=== PATIENT | female | born 1955 | race Caucasian/White ===

== ENCOUNTER 2021-02-14 21:26 | Emergency (ER) | payer MEDICARE ==
[2021-02-14] MEDS ORDERED: Ondansetron 4 MG/2 ML SDV IVPUSH ONE ×2 (21:28→22:33)
[2021-02-14] MEDS ORDERED: Sodium Chloride 0.9% 10 ML Syringe FLUSH PRN (21:28)
[2021-02-14] MEDS ORDERED: Sodium Chloride 0.9% 1,000 ML IV SCH (21:30)
--- NOTE | 2021-02-14 21:32 | EDM.PDOC ---
ED HPI GENERAL MEDICAL PROBLEM - General Chief Complaint: Syncope Stated Complaint: MEDICAL [facility] Time Seen by Provider: 02/14/21 21:27 Source of Information: Reports: Patient, EMS History Limitations: Reports: No Limitations - History of Present Illness INITIAL COMMENTS - FREE TEXT/NARRATIVE: Jesenia is a 65-year-old female presenting to the ED for evaluation of syncopal episode. Patient was at a local area establishment spearing seeing a wine tasting event and started to feel unwell. EMS was called because she felt ill and they reported that she had a 10-second syncopal episode while on their cart. They report that she was pale and diaphoretic. At no time did she lose pulse or respiratory drive, however, she was unresponsive during that time. There was no evidence for seizure activity. The patient continues to complain of feeling unwell, dizziness, intoxication, and nausea. She has not had any emesis at this point. She does take cetirizine and Flonase. She has a severe allergy to quinine. - Related Data Allergies Allergy/AdvReac Type Severity Reaction Status Date / Time quinine Allergy Chills Verified 02/14/21 22:03 Home Meds: Home Meds Cetirizine HCl [Zyrtec] 1 cap PO DAILY 02/14/21 [History] Fluticasone Propionate [Flonase] 1 spray NASBOTH DAILY 02/14/21 [History] Montelukast [Singulair] 1 tab PO DAILY 02/14/21 [History] Pantoprazole Sodium [Protonix] 1 tab PO DAILY 02/14/21 [History] ED ROS GENERAL - Review of Systems Review Of Systems: See Below Constitutional: Reports: Malaise, Weakness, Decreased Appetite HEENT: Reports: No Symptoms Respiratory: Reports: No Symptoms Cardiovascular: Reports: Syncope Endocrine: Reports: No Symptoms GI/Abdominal: Reports: Nausea : Reports: No Symptoms Musculoskeletal: Reports: No Symptoms Skin: Reports: No Symptoms Neurological: Reports: No Symptoms Psychiatric: Reports: No Symptoms Hematologic/Lymphatic: Reports: No Symptoms Immunologic: Reports: No Symptoms - Physical Exam Exam: See Below Exam Limited By: No Limitations General Appearance: Alert, Anxious, Other (Slow to answer questions) Eye Exam: Bilateral Eye: EOMI, PERRL Ears: Normal External Exam, Normal TMs Nose: Normal Inspection, Normal Mucosa Throat/Mouth: Normal Inspection, Normal Lips, Normal Oropharynx, Normal Voice, No Airway Compromise Head Exam: Atraumatic, Normocephalic Neck: Normal Inspection, Supple, Non-Tender, Full Range of Motion Respiratory/Chest: No Respiratory Distress, Lungs Clear, Normal Breath Sounds Cardiovascular: Normal Peripheral Pulses, Regular Rate, Rhythm, No Murmur GI/Abdominal: Normal Bowel Sounds, Soft, Non-Tender Neuro Exam (Abbreviated): Alert, Oriented, CN II-XII Intact, No Motor/Sensory Deficits, Slow to Respond Back Exam: Normal Inspection, Full Range of Motion Extremities: Normal Inspection, Normal Range of Motion, Normal Capillary Refill Psychiatric: Normal Affect Skin Exam: Warm, Dry, Intact, Normal Color #1 Interpretation EKG Date: 02/14/21 Time: 21:27 Rhythm: NSR Rate (Beats/Min): 68 [place]: Normal P-Wave: Present (Prolonged AK interval at 225 ms) QRS: Normal ST-T: Normal QT: Normal Comparison: NA - No Prior EKG Course - Vital Signs Last Recorded V/S: Last Vital Signs Temp 35.9 C L 02/14/21 21:51 Pulse 68 02/14/21 22:25 Resp 21 H 02/14/21 22:25 BP 111/60 02/14/21 22:25 Pulse Ox 100 02/14/21 22:25 - Orders/Labs/Meds Orders: Active Orders 24 hr Category Date Time Status EKG Documentation Completion [RC] ASDIRECTED Care 02/14/21 21:29 Active Sodium Chloride 0.9% [Normal Saline] 1,000 ml Med 02/14/21 21:30 Active IV ASDIRECTED Sodium Chloride 0.9% [Saline Flush] Med 02/14/21 21:28 Active 10 ml FLUSH ASDIRECTED PRN Saline Lock Insert [OM.PC] Routine Oth 02/14/21 21:28 Ordered EKG 12 Lead [EK] Routine Ther 02/14/21 21:29 Ordered Medication Orders Sodium Chloride (Normal Saline) 1,000 mls @ 999 mls/hr IV ASDIRECTED JT Last Admin: 02/14/21 21:46 Dose: 999 mls/hr Documented by: SWEETIE Sodium Chloride (Sodium Chloride 0.9% 10 Ml Syringe) 10 ml FLUSH ASDIRECTED PRN PRN Reason: Keep Vein Open Last Admin: 02/14/21 22:08 Dose: 10 ml Documented by: SWEETIE Labs: Laboratory Tests 02/14/21 02/14/21 02/14/21 Range/Units 21:28 21:41 21:41 WBC 8.4 (4.5-11.0) K/uL RBC 3.96 (3.30-5.50) M/uL Hgb 12.1 (12.0-15.0) g/dL Hct 36.6 (36.0-48.0) % MCV 92 (80-98) fL MCH 31 (27-31) pg MCHC 33 (32-36) % Plt Count 158 (150-400) K/uL Neut % (Auto) 53.7 (36-66) % Lymph % (Auto) 35.5 (24-44) % [place] % (Auto) 8.0 H (2-6) % Eos % (Auto) 1.7 L (2-4) % Baso % (Auto) 1.1 H (0-1) % Sodium 140 (140-148) mmol/L Potassium 3.1 L (3.6-5.2) mmol/L Chloride 105 (100-108) mmol/L Carbon Dioxide 21 (21-32) mmol/L Anion Gap 17.1 H (5.0-14.0) mmol/L BUN 16 (7-18) mg/dL Creatinine 0.9 (0.6-1.0) mg/dL Est Cr Clr Drug Dosing 57.56 mL/min Estimated GFR (MDRD) > 60 (>60) Glucose 127 H (74-106) mg/dL Calcium 8.6 (8.5-10.1) mg/dL Total Bilirubin 0.2 (0.2-1.0) mg/dL AST 39 H (15-37) U/L ALT 44 (12-78) U/L Alkaline Phosphatase 60 (46-116) U/L Troponin I (0.000-0.056) ng/mL C-Reactive Protein (0.0-0.3) mg/dL Total Protein 6.6 (6.4-8.2) g/dL Albumin 3.4 (3.4-5.0) g/dL Globulin 3.2 (2.3-3.5) g/dL Albumin/Globulin Ratio 1.1 L (1.2-2.2) Lipase 124 (73-393) U/L Ethyl Alcohol 85 mg/dL 02/14/21 02/14/21 Range/Units 21:41 22:22 WBC (4.5-11.0) K/uL RBC (3.30-5.50) M/uL Hgb (12.0-15.0) g/dL Hct (36.0-48.0) % MCV (80-98) fL MCH (27-31) pg MCHC (32-36) % Plt Count (150-400) K/uL Neut % (Auto) (36-66) % Lymph % (Auto) (24-44) % [place] % (Auto) (2-6) % Eos % (Auto) (2-4) % Baso % (Auto) (0-1) % Sodium (140-148) mmol/L Potassium (3.6-5.2) mmol/L Chloride (100-108) mmol/L Carbon Dioxide (21-32) mmol/L Anion Gap (5.0-14.0) mmol/L BUN (7-18) mg/dL Creatinine (0.6-1.0) mg/dL Est Cr Clr Drug Dosing mL/min Estimated GFR (MDRD) (>60) Glucose (74-106) mg/dL Calcium (8.5-10.1) mg/dL Total Bilirubin (0.2-1.0) mg/dL AST (15-37) U/L ALT (12-78) U/L Alkaline Phosphatase (46-116) U/L Troponin I < 0.017 (0.000-0.056) ng/mL C-Reactive Protein < 0.05 (0.0-0.3) mg/dL Total Protein (6.4-8.2) g/dL Albumin (3.4-5.0) g/dL Globulin (2.3-3.5) g/dL Albumin/Globulin Ratio (1.2-2.2) Lipase (73-393) U/L Ethyl Alcohol mg/dL Meds: Medications Generic Name Dose Route Start Last Admin Trade Name Freq PRN Reason Stop Dose Admin Sodium Chloride 1,000 mls @ 999 mls/hr 02/14/21 21:30 02/14/21 21:46 Normal Saline IV 999 mls/hr ASDIRECTED JT Administration Sodium Chloride 10 ml 02/14/21 21:28 02/14/21 22:08 Sodium Chloride 0.9% 10 Ml Syringe FLUSH 10 ml ASDIRECTED PRN Administration Keep Vein Open Discontinued Medications Generic Name Dose Route Start Last Admin Trade Name Yonatanq PRN Reason Stop Dose Admin Ondansetron HCl 4 mg 02/14/21 21:28 02/14/21 21:46 Ondansetron 4 Mg/2 Ml Sdv IVPUSH 02/14/21 21:29 4 mg ONETIME ONE Administration Ondansetron HCl 4 mg 02/14/21 22:33 02/14/21 22:55 Ondansetron 4 Mg/2 Ml Sdv IVPUSH 02/14/21 22:34 4 mg ONETIME ONE Administration - Re-Assessments/Exams Free Text/Narrative Re-Assessment/Exam: 02/14/21 22:23 the patient presents with a letter from her provider stating that she has an immune mediated response to quinine causing thrombocytopenia and may present with a septic appearing picture. Patient's is very concerned that this may have happened. Patient was eating at [employer] today where she was also doing the wine sampling. She ate the salad and and dillon was concerned that maybe it had [place], bitters, or tonic water and it containing quinine. I did review her labs showing a normal CBC, comprehensive metabolic profile with the exception of a potassium of 3.1 and an anion gap of 17.1. The patient's EKG was unremarkable and her troponin I is negative at less than 0.017. Her AST, ALT, and alkaline phosphatase are all normal. Her ethanol is 85. C-reactive protein is normal at less than 0.05. Overall, it appears the patient may have had a vasovagal syncopal episode secondary to nausea and alcohol intake. I do not see any evidence for immune mediated response to quinine. We did contact the restaurant who confirmed that none of these products were used in the food that she consumed. 02/14/21 23:19 nausea improved after the second round of Zofran. My plan is sending the patient home with a prescription for Zofran 4 mg ODT 5 tablets. Departure - Departure Time of Disposition: 23:19 Disposition: Home, Self-Care 01 Clinical Impression: Vasovagal syncope, Hypokalemia, Nausea, Dehydration Alcohol intoxication Qualifiers: Complication of substance-induced condition: uncomplicated Qualified Code(s): F10.920 - Alcohol use, unspecified with intoxication, uncomplicated - Discharge Information Instructions: Nausea, Adult, Dehydration, Elderly, [id number], Syncope, [id number] Referrals: PCP,None [Primary Care Provider] - Forms: ED Department Discharge Care Plan Goals: BananaYour work-up today shows that your potassium is slightly low. You may supplement this with orange juice. In addition, your symptoms were likely related to being dehydrated, having some alcohol on board, and having vasovagal syncope which caused a sudden drop in your blood pressure resulting in you passing out. The nausea is likely due to eating the rich foods today. I am sending you home with a prescription for Zofran which you may take 1 tablet every 8 hours as needed for nausea control. I would drink frequent small amounts of fluids to rehydrate although we did give you a liter of fluid here in the hospital which should make things much better. Sure that when you are out in the high heat and humidity that you drink plenty of fluids to prevent occurrence of dehydration. Sepsis Event Note (ED) - Focused Exam Vital Signs: Vital Signs Temp Pulse Resp BP Pulse Ox 02/14/21 22:25 68 21 H 111/60 100 02/14/21 21:55 69 16 109/59 L 100 02/14/21 21:51 35.9 C L 65 16 105/56 L 100 02/14/21 21:38 35.9 C L 65 16 105/56 L 100 - Problem List & Annotations (1) Alcohol intoxication SNOMED Code(s): 12749097 Code(s): F10.929 - ALCOHOL USE, UNSPECIFIED WITH INTOXICATION, UNSPECIFIED Status: Acute Priority: High Current Visit: Yes Qualifiers: Complication of substance-induced condition: uncomplicated Qualified Code(s): F10.920 - Alcohol use, unspecified with intoxication, uncomplicated (2) Dehydration SNOMED Code(s): 87264713 Code(s): E86.0 - DEHYDRATION Status: Acute Priority: High Current Visit: Yes (3) Hypokalemia SNOMED Code(s): 14393153 Code(s): E87.6 - HYPOKALEMIA Status: Acute Priority: High Current Visit: Yes (4) Nausea SNOMED Code(s): 992990692 Code(s): R11.0 - NAUSEA Status: Acute Priority: High Current Visit: Yes (5) Vasovagal syncope SNOMED Code(s): 276654639 Code(s): R55 - SYNCOPE AND COLLAPSE Status: Acute Priority: High Current Visit: Yes - Problem List Review Problem List Initiated/Reviewed/Updated: Yes - My Orders Last 24 Hours: My Active Orders 02/14/21 21:28 Sodium Chloride 0.9% [Saline Flush] 10 ml FLUSH ASDIRECTED PRN Saline Lock Insert [OM.PC] Routine 02/14/21 21:29 EKG Documentation Completion [RC] ASDIRECTED EKG 12 Lead [EK] Routine 02/14/21 21:30 Sodium Chloride 0.9% [Normal Saline] 1,000 ml IV ASDIRECTED - Assessment/Plan Last 24 Hours: My Active Orders 02/14/21 21:28 Sodium Chloride 0.9% [Saline Flush] 10 ml FLUSH ASDIRECTED PRN Saline Lock Insert [OM.PC] Routine 02/14/21 21:29 EKG Documentation Completion [RC] ASDIRECTED EKG 12 Lead [EK] Routine 02/14/21 21:30 Sodium Chloride 0.9% [Normal Saline] 1,000 ml IV ASDIRECTED
== END 2021-02-15 00:11 | disposition home or self-care (01) ==
LOC: JP.ED 21:26
DX: F10.120 Alcohol abuse with intoxication, uncomplicated (principal); E87.6 Hypokalemia; Y90.4 Blood alcohol level of 80-99 mg/100 ml; Z91.048 Other nonmedicinal substance allergy status
CPT/HCPCS: 36415; 80053; 80307; 83690; 84484; 85025; 86140; 93005; 96374; 96376; 99284; J2405; J7030